=== PATIENT | male | born 1950 | race Caucasian/White ===

== ENCOUNTER 2019-11-25 12:16 | Emergency (ER) | payer OTHER ==
--- NOTE | 2019-11-25 13:50 | ER Document Report ---
ED Medical Screen (RME) - General Chief Complaint: High Blood Pressure Stated Complaint: HIGH BLOOD PRESSURE/DIZZYNESS - DR REFERRED Time Seen by Provider: 11/25/19 13:42 Mode of Arrival: Ambulatory Information source: Patient Notes: Patient is an otherwise healthy 69-year-old male presenting to the emergency department chief complaint of shortness of breath and elevated blood pressure. Patient reports he was seen his primary care last week with bronchitis, they noted him to have elevated blood pressure at that time. They started him on a medication, the patient does not recall which one it is. He reports he went back to the doctor today where they found him to have an abnormal EKG and elevated blood pressure again. Patient denies any chest pain but reports some shortness of breath. He denies any other medical problems. Lung sounds clear and equal bilaterally. Heart sounds S1-S2 present, normal rate. I have greeted and performed a rapid initial assessment of this patient. A comprehensive ED assessment and evaluation of the patient, analysis of test results and completion of the medical decision making process will be conducted by additional ED providers. I have specifically instructed the patient or family members with the patient to immediately return to any nursing staff should anything change in the patient's condition or with their chief complaint. TRAVEL OUTSIDE OF THE [place] IN LAST 30 DAYS: No - Related Data Allergies/Adverse Reactions: No Known Allergies Allergy (Unverified 05/07/16 14:07) Physical Exam - Vital signs Vitals: Temp Resp BP Pulse Ox 98.2 F 20 143/66 H 97 11/25/19 13:37 11/25/19 13:37 11/25/19 13:37 11/25/19 13:37 Course - Vital Signs Vital signs: Temp Pulse Resp BP Pulse Ox 98.2 F 70 20 143/66 H 97 11/25/19 13:37 11/25/19 13:43 11/25/19 13:37 11/25/19 13:37 11/25/19 13:37
--- NOTE | 2019-11-25 14:27 | RADIOLOGY REPORT (SQ) ---
EXAM DESCRIPTION: CHEST 2 VIEWS COMPLETED DATE/TIME: 11/25/2019 2:15 pm REASON FOR STUDY: shortness of breath/elevated blood pressure COMPARISON: None. EXAM PARAMETERS: NUMBER OF VIEWS: two views TECHNIQUE: Digital Frontal and Lateral radiographic views of the chest acquired. RADIATION DOSE: NA LIMITATIONS: none FINDINGS: LUNGS AND PLEURA: No opacities, masses or pneumothorax. No pleural effusion. MEDIASTINUM AND HILAR STRUCTURES: No masses or contour abnormalities. HEART AND VASCULAR STRUCTURES: Heart normal size. No evidence for failure. BONES: No acute findings. HARDWARE: None in the chest. OTHER: No other significant finding. IMPRESSION: NO ACUTE RADIOGRAPHIC FINDING IN THE CHEST. TECHNICAL DOCUMENTATION: JOB ID: [id number] 2010 [employer]- All Rights Reserved Reading location - IP/workstation name: [email or web address]
[2019-11-25 15:00] LABS: ABSOLUTE EOSINOPHILS # (AUTO) 0.2 10^3/uL (0.0-0.6); ABSOLUTE LYMPHOCYTES (AUTO) 1.8 10^3/uL (0.5-4.7); ABSOLUTE MONOCYTES (AUTO) 0.5 10^3/uL (0.1-1.4); BASOPHILS % (AUTO) 0.5 % (0-2); EOSINOPHILS % (AUTO) 3.1 % (0-6); HEMATOCRIT 45.2 % (37.9-51.0); HEMOGLOBIN 15.9 g/dL (13.5-17.0); LYMPHOCYTES % (AUTO) 23.6 % (13-45); MEAN CORPUSCULAR HEMOGLOBIN 31.3 pg (27.0-33.4); MEAN CORPUSCULAR HGB CONC 35.1 g/dL (32.0-36.0); MEAN CORPUSCULAR VOLUME 89 fl (80-97); MONOCYTES % (AUTO) 7.2 % (3-13); PLATELET COUNT 176 10^3/uL (150-450); RED BLOOD COUNT 5.07 10^6/uL (4.35-5.55); RED CELL DISTRIBUTION WIDTH 13.9 % (11.5-14.0); SEGMENTED NEUTROPHILS % (AUTO) 65.6 % (42-78); TOTAL CELLS COUNTED % (AUTO) 100 %; WHITE BLOOD COUNT 7.6 10^3/uL (4.0-10.5)
[2019-11-25 15:21] LABS: ALBUMIN 4.4 g/dL (3.5-5.0); ALKALINE PHOSPHATASE 77 U/L (38-126); ANION GAP 7 (5-19); ASPARTATE AMINO TRANSFERASE 27 U/L (17-59); BILIRUBIN,DIRECT 0.2 mg/dL (0.0-0.4); BILIRUBIN,TOTAL 0.5 mg/dL (0.2-1.3); BLOOD UREA NITROGEN 23 mg/dL (7-20); CALCIUM 9.4 mg/dL (8.4-10.2); CARBON DIOXIDE 27 mmol/L (22-30); CHLORIDE 104 mmol/L (98-107); GLUCOSE 99 mg/dL (75-110); POTASSIUM 4.7 mmol/L (3.6-5.0); TOTAL PROTEIN 7.7 g/dL (6.3-8.2)
--- NOTE | 2019-11-25 15:37 | EKG REPORT ---
SEVERITY:- ABNORMAL ECG - SINUS RHYTHM MULTIPLE ATRIAL PREMATURE COMPLEXES PROBABLE LEFT ATRIAL ABNORMALITY ANTERIOR INFARCT, OLD NONSPECIFIC T ABNORMALITIES, INFERIOR LEADS : Confirmed by: Keiry Kate MD 25-Nov-2019 15:37:06
--- NOTE | 2019-11-25 15:50 | ER Document Report ---
ED General - General Chief Complaint: Dizziness Stated Complaint: HIGH BLOOD PRESSURE/DIZZYNESS - DR REFERRED Time Seen by Provider: 11/25/19 13:42 Primary Care Provider: LUIS FERNANDO ESPINOSA PA-C [Primary Care Provider] - Follow up as needed Mode of Arrival: Ambulatory Notes: HPI: 69-year-old male who states around 2-1/2 weeks he developed some runny nose, congestion, and cough. He was seen by his primary care physician and started on antibiotics. He completed those and denies any such symptoms at this time. He states on his initial visit follow-up visit around a week and a half ago he was found to have an elevated blood pressure. No headache, lightheadedness, chest pain, abdominal pain, or leg swelling. He states he was seen again for reevaluation today and they noticed some PACs on his EKG. He states maybe he had a little lightheadedness today. They had started him on amlodipine 10 days ago. Because of the slightly irregular EKG they wanted the patient assessed. Patient's blood pressure here was 140/80. Patient denies any and all symptomatology here. He has had [place] no chest pain. When asked about the triage shortness of breath report, the patient denies any shortness of breath to me. He states at times during the last 2 weeks he feels like he may need to "take a deep breath". ROS: See HPI All other review of systems reviewed and otherwise negative Reviewed vital signs and nursing note as charted by RN. PHYSICAL EXAM: CONSTITUTIONAL: Alert and oriented and responds appropriately to questions. Well-appearing; well-nourished HEAD: Normocephalic; atraumatic EYES: PERRL; Conjunctivae clear, sclerae non-icteric ENT: Normal nose; no rhinorrhea; moist mucous membranes; pharynx without lesions noted NECK: Supple without meningismus; non-tender; no carotid bruit; no cervical lymphadenopathy, no masses CARD: Regular rate and rhythm; patient has a mild 3 out of 6 systolic murmur heard best at the right sternal border consistent with possible minimal aortic stenosis; symmetric distal pulses RESP: Normal chest excursion without splinting or tachypnea; breath sounds clear and equal bilaterally; no wheezes, no rhonchi, no rales ABD/GI: Normal bowel sounds; non-distended; soft, non-tender; no palpable organomegaly or masses BACK: The back appears normal and is non-tender to palpation EXT: Normal ROM in all joints; non-tender to palpation; no edema SKIN: No acute lesions noted NEURO: CN 2-12 intact; 5/5 bilateral upper and lower extremity strength with sensation intact to light touch PSYCH: The patient's mood and manner are appropriate. Grooming and personal hygiene are appropriate. TRAVEL OUTSIDE OF THE [place] IN LAST 30 DAYS: No - Related Data Allergies/Adverse Reactions: No Known Allergies Allergy (Unverified 05/07/16 14:07) Past Medical History - General Information source: Patient - Social History Smoking Status: Current Some Day Smoker Frequency of alcohol use: None Drug Abuse: None Family History: Reviewed & Not Pertinent Patient has suicidal ideation: No Patient has homicidal ideation: No Physical Exam - Vital signs Vitals: Temp Resp BP Pulse Ox 98.2 F 20 143/66 H 97 11/25/19 13:37 11/25/19 13:37 11/25/19 13:37 11/25/19 13:37 Course - Re-evaluation Re-evalutation: Given the above history and physical we will obtain an EKG, cardiac panel, x-ray of the chest, and reassess. Blood pressure is 140/80 at this time. He is not tachycardic nor hypoxic. I do believe ACS, PE, dissection to be unlikely. EKG shows a heart rate of 64, PACs present, inverted T waves in 3 and aVF. Poor wave progression. No old EKG to compare 11/25/19 15:45 Labs and imaging as recorded. Patient still denies any symptoms. Repeat blood pressure was unremarkable and much improved from what was reported at the primary doctor's office. Patient does have good primary care follow-up. Given the cardiac murmur that I am able to detect on auscultation as well as the PACs, I will provide cardiology follow-up with strict return precautions and follow-up with the primary care physician as well. Patient understands these instructions and is comfortable with discharge. - Vital Signs Vital signs: Temp Pulse Resp BP Pulse Ox 98.2 F 70 20 143/66 H 97 11/25/19 13:37 11/25/19 13:43 11/25/19 13:37 11/25/19 13:37 11/25/19 13:37 - Laboratory Result Diagrams: 11/25/19 14:45 11/25/19 14:45 Laboratory results interpreted by me: 11/25/19 14:45 BUN 23 H Discharge - Discharge Clinical Impression: Elevated blood pressure reading, Lightheadedness Condition: Good Disposition: HOME, SELF-CARE Additional Instructions: Continue to take your blood pressure medications as directed. Come back immediately with any lightheadedness, dizziness, chest pain, shortness of breath, calf pain or leg swelling, double or blurry vision, fevers, cough, or any other acute problems. Please follow-up with the primary care physician as discussed. Referrals: LUIS FERNANDO ESPINOSA PA-C [Primary Care Provider] - Follow up as needed SIRI BRYANT MD [ACTIVE STAFF] - Follow up as needed
[2019-11-25 15:55] VITALS: BP 143/59
== END 2019-11-25 16:08 | disposition home or self-care (01) ==
LOC: ER 12:16
DX: R42 Dizziness and giddiness (principal); I10 Essential (primary) hypertension; R09.89 Other specified symptoms and signs involving the circulatory and respiratory systems; R09.81 Nasal congestion; R05 Cough; F17.200 Nicotine dependence, unspecified, uncomplicated
CPT/HCPCS: 36415; 71046; 80053; 84484; 85025; 93005; 93010; 99284